=== PATIENT | male | born 1955 | race Native Hawaiian/Other Pacific Islander ===

== ENCOUNTER → 2017-11-12 | Outpatient (REF) | payer OTHER | LOC: M LAB REF 16:30 | DX: J02.9 Acute pharyngitis, unspecified (principal) ==

== ENCOUNTER → 2018-01-04 | Outpatient (CLI) | payer OTHER | LOC: M CLY 11:39 | DX: M25.552 Pain in left hip (principal) | CPT/HCPCS: 73502 ==

== ENCOUNTER 2018-10-13 02:45 | Emergency (ER) | payer OTHER ==
[~2018-10-13] VITALS: Ht 177.8 cm; Wt 76.4 kg
[2018-10-13] MEDS ORDERED: ASPI81CH33 PO (02:50)
--- NOTE | 2018-10-13 03:24 | REP ---
Clinical: Chest pain . Comparison: None . Findings: The mediastinum and cardiac silhouette are stable and within normal limits for portable technique. The lung nascimento are clear without acute consolidation, effusion, or pneumothorax. Skeletal structures are intact. Impression: No acute cardiopulmonary process appreciated. Electronically Signed by Lv Deal MD 10/13/2018 03:16 A
[2018-10-13 03:35] LABS: BASO # 0.1 10^3/uL (0.0-0.2); EOS # 0.2 10^3/uL (0.0-0.50); EOS % 4.3 % (0.0-3.0); HEMATOCRIT 44.3 % (42.0-52.0); HEMOGLOBIN 14.7 g/dl (13.5-17.5); LYMPH % 20.5 % (24.0-44.0); MEAN CORPUSCULAR HEMOGLOBIN 31.7 pg (27.0-33.0); MEAN CORPUSCULAR HGB CONC 33.2 g/dl (32.0-36.5); MEAN CORPUSCULAR VOLUME 95.7 fl (80.0-96.0); MONO # 0.6 10^3/uL (0.0-0.8); NEUTROPHILS # 3.1 10^3/uL (1.8-7.7); PLATELET COUNT, AUTOMATED 191 10^3/uL (150-450); RED BLOOD COUNT 4.63 10^6/uL (4.30-6.10); WHITE BLOOD COUNT 4.9 10^3/uL (4.0-10.0)
[2018-10-13] MEDS ORDERED: ASPIRIN 81 MG CHEW TABLET PO ONE (04:00)
[2018-10-13 04:06] LABS: ALBUMIN 3.5 GM/DL (3.2-5.2); ALT/SGPT 31 U/L (12-78); BILIRUBIN,DIRECT 0.1 MG/DL (0.0-0.2); BILIRUBIN,TOTAL 0.4 MG/DL (0.2-1.0); BLOOD UREA NITROGEN 17 MG/DL (7-18); CARBON DIOXIDE LEVEL 27 MEQ/L (21-32); CHLORIDE LEVEL 109 MEQ/L (98-107); CK-MB VALUE MASS < 1.0 NG/ML (<3.6); CPK CREATINE PHOSPHOKINASE 120 U/L (39-308); CREATININE FOR GFR 1.02 MG/DL (0.70-1.30); GLOMERULAR FILTRATION RATE > 60.0 (>49); GLUCOSE, FASTING 95 MG/DL (70-100); LIPASE 102 U/L (73-393); MB/CK RELATIVE INDEX 0.83 (< OR =4); POTASSIUM SERUM 3.5 MEQ/L (3.5-5.1); SODIUM LEVEL 141 MEQ/L (136-145); TOTAL PROTEIN 6.9 GM/DL (6.4-8.2); TROPONIN I < 0.02 NG/ML (< 0.10)
[2018-10-13 04:07] LABS: INR 0.99; PROTHROMBIN TIME 12.8 SECONDS (11.8-14.0)
[2018-10-13 04:09] LABS: PARTIAL THROMBOPLASTIN TIME 46.8 SECONDS (25.0-38.4)
[2018-10-13 04:10] VITALS: BP 118/64
[2018-10-13 04:10] LABS: D-DIMER QUANT 2212.01 ng/ml (<500)
[2018-10-13] MEDS: NITROGLYCERIN 0.4 MG SUBL TABLET SL PRN ×2 (04:10→04:12)
[2018-10-13] MEDS ORDERED: ISOVUE-370 76% 100ML VIAL (Q9967) As Ordered ONE (04:20)
--- NOTE | 2018-10-13 04:47 | REPVR ---
EXAM: CT Angiography Chest With Contrast EXAM DATE/TIME: 10/13/2018 4:14 AM CLINICAL HISTORY: 63 years old, male; Chest pain; Type not specified; Additional info: R chest pain R/O pe TECHNIQUE: Imaging protocol: Axial computed tomographic angiography images of the chest with intravenous contrast using CT angiography protocol. Coronal and sagittal reformatted images were created and reviewed. 3D rendering: MIP reconstructed images were created and reviewed. Radiation optimization: All CT scans at this facility use at least one of these dose optimization techniques: automated exposure control; mA and/or kV adjustment per patient size (includes targeted exams where dose is matched to clinical indication); or iterative reconstruction. Contrast material: ISO;Contrast volume: 100 ml;Contrast route: AC; COMPARISON: CR PORTABLE CHEST X-RAY 10/13/2018 3:05 AM FINDINGS: Pulmonary arteries: The main pulmonary artery measures 33 mm. No pulmonary embolism is identified. Aorta: The ascending thoracic aorta measures 38 mm. Lungs: Mild bilateral dependent atelectasis. Minimal infiltrates are not excluded. Pleural space: Unremarkable. No pneumothorax. No pleural effusion. Heart: Unremarkable. No cardiomegaly. No pericardial effusion. Gallbladder and bile ducts: Status post cholecystectomy. Lymph nodes: Unremarkable. No enlarged lymph nodes. Bones/joints: Unremarkable. No acute fracture. Soft tissues: Unremarkable. IMPRESSION: 1. Mild bilateral dependent atelectasis. Minimal ground glass infiltrates are not excluded. 2. Otherwise negative CTA chest. No pulmonary embolism is identified. Electronically signed by: Hill Villafana On 10/13/2018 04:46:42 AM
--- NOTE | 2018-10-13 05:27 | REPVR ---
EXAM: US Duplex Bilateral Lower Extremity Veins EXAM DATE/TIME: 10/13/2018 5:21 AM CLINICAL HISTORY: 63 years old, male; Abnormal findings; Abnormal lab test; Elevated d-dimer; Additional info: Chest pain positive d-dimer R/O dvt TECHNIQUE: Imaging protocol: Real-time duplex ultrasound of the Bilateral Lower Extremities with 2-D wilkins scale, color Doppler flow and spectral waveform analysis with image documentation. Complete exam focused on the bilateral lower extremity veins. COMPARISON: No relevant prior studies available. FINDINGS: Right deep veins: Unremarkable. The common femoral, femoral, proximal profunda femoral and popliteal veins are patent without thrombus. Normal Doppler waveforms. Normal compressibility and/or augmentation response. Right superficial veins: Saphenofemoral junction is patent without thrombus. Left deep veins: Unremarkable. The common femoral, femoral, proximal profunda femoral and popliteal veins are patent without thrombus. Normal Doppler waveforms. Normal compressibility and/or augmentation response. Left superficial veins: Saphenofemoral junction is patent without thrombus. Soft tissues: Unremarkable. IMPRESSION: Negative bilateral lower extremity venous duplex exam without evidence of deep venous thrombosis. Electronically signed by: Hill Villafana On 10/13/2018 05:26:58 AM
--- NOTE | 2018-10-13 07:24 | ECGEPIP ---
[facility] - ED Test Date: 2018-10-13 Pat Name: VINICIUS ELIAS Department: Room: - Gender: Male Evidence Specialist: RONNY : 1955 Requested By: LARISA Wyman Order Number: [id number] Reading MD: He Albarado Measurements Intervals [place] Rate: 52 P: 41 [place]: 173 QRS: 4 QRSD: 106 T: 6 QT: 446 QTc: 416 Interpretive Statements SINUS BRADYCARDIA POSSIBLE PRIOR INFERIOR INFARCT NO PRIORS FOR COMPARISON Electronically Signed on 10-13-2018 7:24:42 EDT by He Albarado
[2018-10-13 09:48] LABS: CK-MB VALUE MASS 1.1 NG/ML (<3.6); CPK CREATINE PHOSPHOKINASE 109 U/L (39-308); MB/CK RELATIVE INDEX 1.01 (< OR =4); TROPONIN I < 0.02 NG/ML (< 0.10)
[2018-10-13] MEDS ORDERED: GI COCKTAIL 50ML BTL(HYOSCYAMINE/MAALOX/LIDOCAINE VISCOUS)(1:3:1) PO ONE (10:15)
[2018-10-13 10:28] VITALS: BP 153/58
--- NOTE | 2018-10-15 07:29 | ECGEPIP ---
[facility] - ED Test Date: 2018-10-13 Pat Name: VINICIUS ELIAS Department: Room: - Gender: Male Physical Science Teacher: carlos : 1955 Requested By: LARISA Wyman Order Number: [id number] Reading MD: Ninoska Cole Measurements Intervals [place] Rate: 55 P: 40 [place]: 181 QRS: 3 QRSD: 122 T: 9 QT: 448 QTc: 429 Interpretive Statements SINUS BRADYCARDIA MODERATE INTRAVENTRICULAR CONDUCTION DELAY POSSIBLE PRIOR INFERIOR INFARCT SIMILAR 10/13/18 Electronically Signed on 10-15-2018 7:28:53 EDT by Ninoska Cole
--- NOTE | 2018-10-15 07:30 | ECGEPIP ---
[facility] - ED Test Date: 2018-10-13 Pat Name: VINICIUS ELIAS Department: Room: - Gender: Male Efficiency Clerk: monroe : 1955 Requested By: Ninoska Cole Order Number: [id number] Reading MD: Ninoska Cole Measurements Intervals [place] Rate: 54 P: 29 [place]: 183 QRS: -8 QRSD: 101 T: 2 QT: 426 QTc: 404 Interpretive Statements SINUS BRADYCARDIA POSSIBLE PRIOR INFERIOR INFAECT SIMILAR 10/13/18 8:52 Electronically Signed on 10-15-2018 7:29:43 EDT by Ninoska Cole
== END 2018-10-13 10:38 | disposition home or self-care (01) ==
LOC: M ED 02:45
DX: R07.9 Chest pain, unspecified (principal); Z82.49 Family history of ischemic heart disease and other diseases of the circulatory system; Z79.82 Long term (current) use of aspirin
CPT/HCPCS: 71045; 71275; 80048; 80076; 82550; 82553; 83690; 84484; 85025; 85379; 85610; 85730; 93005; 93041; 93970; 99285; Q9967

== ENCOUNTER → 2020-01-19 | Outpatient (CLI) | payer OTHER, BC ==
[~2020-01-19] MED LIST: ASPI81CH33 PO
--- NOTE | 2020-01-19 13:54 | REPPI ---
INDICATION: RIGHT FOOT TENDINITIS. COMPARISON: None. TECHNIQUE: Four views FINDINGS: The joint spaces are symmetric and relatively well maintained. There is no evidence of acute fracture or destructive osseous lesion. IMPRESSION: Negative. <Electronically signed by Garrett Trujillo > 01/19/20 [id number]
== END ==
LOC: M PLAIMG 11:00
PROVIDERS: ATTEND Nurse Practitioner Family
DX: M77.51 Other enthesopathy of right foot and ankle (principal)

== ENCOUNTER → 2020-03-12 | Outpatient (CLI) | payer SELFPAY | LOC: M LABSMTC 11:16 | PROVIDERS: ATTEND Pediatrics | DX: Z20.822 Contact with and (suspected) exposure to COVID-19 (principal) ==

== ENCOUNTER → 2021-08-08 | Outpatient (REF) | payer MEDICARE, BC | LOC: M LAB REF 13:56 | PROVIDERS: ATTEND Nurse Practitioner Family | DX: D23.72 Other benign neoplasm of skin of left lower limb, including hip (principal) ==

== ENCOUNTER → 2021-12-01 | Outpatient (CLI) | payer MEDICARE, BC | LOC: M RAD 09:49 | PROVIDERS: ATTEND Internal Medicine | DX: R35.0 Frequency of micturition (principal) ==

== ENCOUNTER → 2021-12-03 | Outpatient (REF) | payer MEDICARE, BC ==
[2021-12-03 14:03] LABS: APPEARANCE, URINE MANUAL CLOUDY (CLEAR); COLOR, URINE MANUAL YELLOW (YELLOW)
[2021-12-03 14:04] LABS: BILIRUBIN, URINE MANUAL NEGATIVE (NEGATIVE); BLOOD URINE MANUAL NEGATIVE (NEGATIVE); GLUCOSE, URINE (UA) MANUAL NEGATIVE (NEGATIVE); KETONE, URINE MANUAL NEGATIVE (NEGATIVE); LEUKOCYTE ESTERASE, URINE MAN NEGATIVE (NEGATIVE); NITRITE, URINE MANUAL NEGATIVE (NEGATIVE); PROTEIN, URINE MANUAL NEGATIVE (NEGATIVE); SPECIFIC GRAVITY,URINE MANUAL 1.025 (1.002-1.035); UROBILINOGEN, URINE MANUAL NORMAL (NORMAL)
[2021-12-03 14:21] LABS: BACTERIA, URINE NONE SEEN; RBC, URINE NONE SEEN /hpf (0-3); SQUAMOUS EPITHELIAL CELL URINE NONE SEEN /hpf (SMALL AMT); WBC, URINE NONE SEEN /hpf (0-3)
[2021-12-03 14:22] LABS: AMORPHOUS SEDIMENT, URINE LARGE AMOUNT (NEGATIVE); CALCIUM OXALATE CRYSTALS,URINE SMALL AMOUNT /hpf
== END ==
LOC: M SMT 13:08
PROVIDERS: ATTEND Urology
DX: N20.0 Calculus of kidney (principal)

== ENCOUNTER → 2022-02-06 | Outpatient (CLI) | payer MEDICARE, BC | LOC: M PLARAD 08:02 | PROVIDERS: ATTEND Internal Medicine | DX: R51.9 Headache, unspecified (principal); H53.8 Other visual disturbances; G50.1 Atypical facial pain ==

== ENCOUNTER → 2023-04-12 | Outpatient (REF) | payer MEDICARE, BC | LOC: M LAB REF 16:22 | PROVIDERS: ATTEND Internal Medicine | DX: R07.9 Chest pain, unspecified (principal); R06.02 Shortness of breath ==

== ENCOUNTER 2023-08-01 23:34 | Emergency (ER) | payer MEDICARE, BC ==
[~2023-08-01] VITALS: Ht 177.8 cm; Wt 79.0 kg
[2023-08-02 00:15] LABS: BASO % 0.7 % (0.0-1.0); EOS # 0.3 10^3/uL (0.0-0.5); EOS % 5.4 % (0.0-3.0); HEMATOCRIT 42.9 % (42.0-52.0); HEMOGLOBIN 14.5 g/dl (13.5-17.5); LYMPH # 1.5 10^3/uL (1.5-5.0); LYMPH % 27.6 % (24.0-44.0); MEAN CORPUSCULAR HGB CONC 33.8 g/dl (32.0-36.5); MEAN CORPUSCULAR VOLUME 94.7 fl (80.0-96.0); MONO # 0.7 10^3/uL (0.0-0.8); NEUTROPHILS # 2.9 10^3/uL (1.5-8.5); NEUTROPHILS % 52.8 % (36.0-66.0); PLATELET COUNT, AUTOMATED 173 10^3/uL (150-450); RED BLOOD COUNT 4.53 10^6/uL (4.30-6.10); WHITE BLOOD COUNT 5.5 10^3/uL (4.0-10.0)
[2023-08-02 00:28] LABS: ALBUMIN 3.6 G/DL (3.2-5.2); BILIRUBIN,DIRECT 0.1 MG/DL (<0.4); BILIRUBIN,TOTAL 0.4 MG/DL (0.3-1.2); TOTAL PROTEIN 6.4 G/DL (5.7-8.2)
[2023-08-02 00:29] LABS: CK-MB VALUE MASS 1.6 NG/ML (<3.6)
[2023-08-02 00:31] LABS: MB/CK RELATIVE INDEX 0.95 (< OR =4)
[2023-08-02] MEDS ORDERED: ISOVUE-370 76% 100ML VIAL As Ordered ONE (00:44)
[2023-08-02 01:03] VITALS: BP 158/99
[2023-08-02] MEDS: hydrALAZINE 20MG/ML 1ML VIAL IV ONE (01:03)
[2023-08-02 01:16] LABS: INR 0.96; PROTHROMBIN TIME 12.5 SECONDS (12.5-14.5)
[2023-08-02] MEDS: KETOROLAC 30 MG/ML 1ML VIAL IV ONE (01:49)
[2023-08-02 03:15] VITALS: BP 148/95; TEMP 97.8; O2SAT 96
== END 2023-08-02 03:24 | disposition home or self-care (01) ==
LOC: M ED 23:34
DX: R07.89 Other chest pain (principal); I10 Essential (primary) hypertension; I25.2 Old myocardial infarction; E78.5 Hyperlipidemia, unspecified; K21.9 Gastro-esophageal reflux disease without esophagitis; Z79.1 Long term (current) use of non-steroidal anti-inflammatories (NSAID)
CPT/HCPCS: 71045; 71275; 74177; 80047; 80076; 82550; 82553; 83605; 83690; 83880; 84484; 85025; 85610; 93005; 93041; 94760; 96374; 96375; 99285; J0360; J1885; Q9967

== ENCOUNTER → 2024-02-15 | Outpatient (CLI) | payer MEDICARE, BC ==
[~2024-02-15] MED LIST changes: +FLOM0.4C39 PO; +LOSA50TA28; +VARD20TA
== END ==
LOC: M WUC 09:40
PROVIDERS: ATTEND Nurse Practitioner Family
DX: M19.141 Post-traumatic osteoarthritis, right hand (principal)

== ENCOUNTER 2024-04-09 10:05 | Emergency (ER) | payer MEDICARE, BC ==
[~2024-04-09] VITALS: Ht 177.8 cm; Wt 76.7 kg
[~2024-04-09 10:05] MED LIST changes: -FLOM0.4C39 PO; -LOSA50TA28; -VARD20TA
[2024-04-09] MEDS ORDERED: VARD20TA (10:14)
[2024-04-09] MEDS ORDERED: LOSA50TA28 (10:14)
[2024-04-09] MEDS ORDERED: FLOM0.4C39 PO (10:14)
[2024-04-09 10:44] LABS: BASO # 0.1 10^3/uL (0.0-0.2); EOS # 0.2 10^3/uL (0.0-0.5); EOS % 4.2 % (0.0-3.0); HEMATOCRIT 43.9 % (42.0-52.0); HEMOGLOBIN 14.8 g/dl (13.5-17.5); LYMPH % 19.4 % (24.0-44.0); MEAN CORPUSCULAR HEMOGLOBIN 31.7 pg (27.0-33.0); MEAN CORPUSCULAR HGB CONC 33.7 g/dl (32.0-36.5); MONO # 0.4 10^3/uL (0.0-0.8); MONO % 8.8 % (2.0-8.0); NEUTROPHILS # 3.3 10^3/uL (1.5-8.5); NEUTROPHILS % 66.4 % (36.0-66.0); PLATELET COUNT, AUTOMATED 175 10^3/uL (150-450); RED BLOOD COUNT 4.67 10^6/uL (4.30-6.10)
[2024-04-09 11:08] LABS: BLOOD UREA NITROGEN 22 MG/DL (9-23); CALCIUM LEVEL 8.9 MG/DL (8.3-10.6); CARBON DIOXIDE LEVEL 27 MMOL/L (20-31); CHLORIDE LEVEL 105 MMOL/L (98-107); CK-MB VALUE MASS < 1.0 NG/ML (<3.6); CPK CREATINE PHOSPHOKINASE 157 U/L (46-171); CREATININE FOR GFR 1.01 MG/DL (0.70-1.30); GLOMERULAR FILTRATION RATE > 60.0 (>49); GLUCOSE, FASTING 94 MG/DL (74-106); MB/CK RELATIVE INDEX 0.63 (< OR =4); POTASSIUM SERUM 4.3 MMOL/L (3.5-5.1); SODIUM LEVEL 142 MMOL/L (136-145)
[2024-04-09] MEDS ORDERED: ISOVUE-370 76% 100ML VIAL As Ordered ONE (11:53)
[2024-04-09 12:19] LABS: MB/CK RELATIVE INDEX 0.8 (< OR =4)
[2024-04-09 13:10] VITALS: BP 152/96; TEMP 96.6; O2SAT 99
== END 2024-04-09 13:16 | disposition home or self-care (01) ==
LOC: M ED 10:05
DX: R07.9 Chest pain, unspecified (principal); M25.521 Pain in right elbow; I10 Essential (primary) hypertension; I25.2 Old myocardial infarction; Z79.1 Long term (current) use of non-steroidal anti-inflammatories (NSAID); Z79.899 Other long term (current) drug therapy
CPT/HCPCS: 36415; 71045; 71275; 73080; 73206; 80048; 82550; 82553; 84484; 85025; 93005; 93041; 93971; 94760; 99285; Q9967

== ENCOUNTER → 2024-10-05 | Outpatient (REF) | payer MEDICARE, BC ==
[~2024-10-05] MED LIST changes: +LOSA50TA28; +TAMS-18 PO; +VARD20TA
[2024-10-05 14:34] LABS: CA19-9 TUMOR MARKER,CARBOHYDRA 13.6 U/ML (<35.0)
== END ==
LOC: M LAB REF 12:37
PROVIDERS: ATTEND Internal Medicine
DX: R10.9 Unspecified abdominal pain (principal); K86.9 Disease of pancreas, unspecified

== ENCOUNTER → 2024-10-11 | Outpatient (CLI) | payer MEDICARE, BC ==
[~2024-10-11] MED LIST changes: +GASTROGRAFIN SOLUTION 30 ML As Ordered ONE; +ISOVUE-370 76% 100 ML VIAL As Ordered ONE
== END ==
LOC: M RAD 08:13
PROVIDERS: ATTEND Internal Medicine
DX: R94.8 Abnormal results of function studies of other organs and systems (principal); K76.89 Other specified diseases of liver; Z90.49 Acquired absence of other specified parts of digestive tract; K57.90 Diverticulosis of intestine, part unspecified, without perforation or abscess without bleeding
CPT/HCPCS: 74177; 82565; Q9963; Q9967

== ENCOUNTER 2024-11-20 09:41 | Day surgery (SDC) | payer MEDICARE, BC ==
[~2024-11-20] VITALS: Ht 177.8 cm; Wt 75.2 kg
[~2024-11-20 09:41] MED LIST changes: -GASTROGRAFIN SOLUTION 30 ML As Ordered ONE; -ISOVUE-370 76% 100 ML VIAL As Ordered ONE; -LOSA50TA28; +LOSA50TA28 PO; -VARD20TA; +VARD20TA PO
[2024-11-20 10:45] VITALS: TEMP 97.6
[2024-11-20 11:10] VITALS: BP 118/81; O2SAT 100
== END 2024-11-20 11:30 | disposition home or self-care (01) ==
LOC: M OPP 09:41
PROVIDERS: ATTEND Internal Medicine Gastroenterology
DX: Z12.11 Encounter for screening for malignant neoplasm of colon (principal); K57.30 Diverticulosis of large intestine without perforation or abscess without bleeding; K64.0 First degree hemorrhoids; Z79.899 Other long term (current) drug therapy

== ENCOUNTER → 2025-01-23 | Outpatient (CLI) | payer MEDICARE, BC | LOC: M WUC 13:59 | PROVIDERS: ATTEND Physician Assistant | DX: S93.412A Sprain of calcaneofibular ligament of left ankle, initial encounter (principal); W18.30XA Fall on same level, unspecified, initial encounter; Y92.009 Unspecified place in unspecified non-institutional (private) residence as the place of occurrence of the external cause ==